=== PATIENT | male | born 1980 | race Two or more races ===

== ENCOUNTER 2018-06-13 12:43 | Emergency (ER) | payer OTHER ==
[~2018-06-13] VITALS: Ht 175.3 cm; Wt 96.2 kg
[2018-06-13 12:45] VITALS: BP 137/86
--- NOTE | 2018-06-13 12:45 | NUR ---
PT AMBULATED TO ER BED 11
--- NOTE | 2018-06-13 13:03 | NUR ---
PER PATIENT TETANUS NOT UP TO DATE
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
--- NOTE | 2018-06-13 13:15 | NUR ---
DR HARTLEY EVALUATING AAO PT AT BEDSIDE
--- NOTE | 2018-06-13 13:39 | NUR ---
PT RESTING COMFORTABLY WITH AT BEDSIDE, NO ACUTE DISTRESS NOTED, WILL CONTINUE TO MONITOR.
[2018-06-13 14:27] VITALS: BP 130/74
--- NOTE | 2018-06-13 14:27 | NUR ---
Patient discharged with v/s stable. Written and verbal after care instructions given and explained to pt and . Patient verbalized understanding. Ambulatory with steady gait. All questions addressed prior to discharge. Advised to follow up with PMD.
[2018-06-14 15:32] LABS: HEPATITIS B SURFACE ANTIGEN Negative (Negative)
== END 2018-06-13 14:27 | disposition home or self-care (01) ==
LOC: MED 12:43
DX: S81.831A Puncture wound without foreign body, right lower leg, initial encounter (principal); W46.0XXA Contact with hypodermic needle, initial encounter; Y93.89 Activity, other specified; Y92.89 Other specified places as the place of occurrence of the external cause; Y99.8 Other external cause status
CPT/HCPCS: 36415; 86592; 86702; 86803; 87340; 90471; 90715; 99284

== ENCOUNTER 2022-07-17 17:24 | Emergency (ER) | payer BC, OTHER ==
[~2022-07-17] VITALS: Ht 175.3 cm; Wt 88.5 kg
[2022-07-17 17:25] VITALS: BP 139/75
[2022-07-17] MEDS ORDERED: LIDOCAINE MPF 1% 10 MG/ML VIAL INJ ONE (18:00)
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
[2022-07-17] MEDS ORDERED: BACI1PAC6 TP (18:38)
[2022-07-17] MEDS ORDERED: IBUP-1842 PO (18:38)
[2022-07-17 18:51] VITALS: BP 139/75
--- NOTE | 2022-07-17 18:51 | NUR ---
Patient discharged with v/s stable. Written and verbal after care instructions ABOUT LACERATION CARE given and explained. Patient alert, oriented and verbalized understanding of instructions. Ambulatory with steady gait. All questions addressed prior to discharge. ID band removed. Patient advised to follow up with PMD. Rx of BACITRACIN AND MOTRIN given. Patient educated on indication of medication including possible reaction and side effects. Opportunity to ask questions provided and answered.
== END 2022-07-17 18:51 | disposition home or self-care (01) ==
LOC: MED 17:24
DX: S81.811A Laceration without foreign body, right lower leg, initial encounter (principal); Z79.899 Other long term (current) drug therapy; W22.8XXA Striking against or struck by other objects, initial encounter; Y93.89 Activity, other specified; Y92.098 Other place in other non-institutional residence as the place of occurrence of the external cause; Y99.8 Other external cause status
CPT/HCPCS: 12002; 99282; J2001